=== PATIENT | female | born 2005 | race Caucasian/White ===

== ENCOUNTER 2024-04-01 12:35 | Outpatient (CLI) | payer BC, SELFPAY ==
--- NOTE | ~2024-04-01 | MR_ITS ---
EXAMINATION: MR hip RT wo con DATE: 04/01/2024 13:29 INDICATION: Stress fracture of right femoral neck. TECHNIQUE: Magnetic resonance imaging (MRI) of the right hip was performed without intravenous contra st. COMPARISON: None FINDINGS: Bones/cartilage: Bone alignment is normal. No fracture. The femoral head/neck morphologies are normal. Small field-of- view images of the right hip demonstrate normal cartilage. Labrum: The right acetabular labrum is normal. Fluid: There is no hip joint effusion. Soft tissues: The hamstring tendons and iliopsoas tendons, and gluteal tendons are normal. IMPRESSION: 1. Normal right hip. No fracture. Reviewed, dictated and finalized at location A.
== END 2024-04-01 12:36 ==
DX: Z00.00 Encounter for general adult medical examination without abnormal findings (principal); M84.351A Stress fracture, right femur, initial encounter for fracture; Z78.9 Other specified health status
CPT/HCPCS: 73721

== ENCOUNTER 2025-02-16 09:46 | Outpatient (CLI) | payer BC, OTHER, SELFPAY ==
--- NOTE | ~2025-02-16 | US_ITS ---
COMPLETE ABDOMINAL ULTRASOUND Ordering provider: Gwendolyn Wilson History: . epigastric pain . Comparison: None. FINDINGS: LIVER: Normal size and echotexture. No focal hepatic lesions or perihepatic fluid collections are darryn ntified. GALLBLADDER: Unremarkable. No evidence for stones, sludge, gallbladder wall thickening or pericholecy stic fluid collections. A negative sonographic Segura's sign was noted. BILIARY DUCTS: No evidence for intra or extrahepatic biliary dilation. Common bile duct measures 2 mm in diameter which is within normal limits. PANCREAS: Normal echotexture and size. SPLEEN: Normal size, echotexture and contour and measures 8.97 cm in length. KIDNEYS: Right measures 10.6x 4.6x 4.2 cm in length and the left 10.2x 4.2x 4.4 cm in length. There i s no evidence for hydronephrosis, solid renal mass, renal calculi or perinephric fluid collections. N o renal cysts. UPPER ABDOMINAL AORTA: Normal in caliber. IVC: Patent. FREE FLUID: None. IMPRESSION: Unremarkable complete ultrasound of the abdomen. Reviewed, dictated and finalized at location A.
== END 2025-02-16 09:47 | disposition home or self-care (01) ==
PROVIDERS: Visit Provider Nurse Practitioner Family
DX: R10.13 Epigastric pain (principal); R10.11 Right upper quadrant pain; R10.12 Left upper quadrant pain
CPT/HCPCS: 76700